=== PATIENT | female | born 1985 | race Hispanic/Latino ===

== ENCOUNTER 2020-02-10 09:43 | Outpatient (CLI) | payer BC ==
[2020-02-10] MEDS ORDERED: Lidocaine 1% PF 10 ML AMP ONE (10:15)
[2020-02-10] MEDS ORDERED: Iopamidol 300 61% 50 ML VIAL FS ONE (10:15)
[2020-02-10] MEDS ORDERED: EPINEPHrine 1 MG/ML AMP ONE (10:15)
[2020-02-10] MEDS ORDERED: Gadobenate Dimeglumine 529 MG/1 ML (20ML VIAL) ONE (10:15)
--- NOTE | 2020-02-10 11:21 | RAD ---
PROCEDURE: Fluoroscopic left shoulder arthrogram INDICATION: Left shoulder pain COMPARISON: None TECHNIQUE: Informed consent was obtained. 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 The patient was placed supine on the fluoroscopic table. A timeout was performed. Site overlying the left shoulder was prepped and draped in the usual sterile fashion. Buffered 1% lidocaine was admi nistered into the overlying subcutaneous tissues. Under fluoroscopic guidance, a 22-gauge spinal needle was guided down into the left glenohumeral joint. Confirmation of needle localization was conf irmed by injecting 1 cc of the buffered 1% lidocaine. Following this 7of the dilute Multihance solution MR Mix: 23.5 mL solution containing 10 mL of 0.008 dilution of Multihance, 8 mL Isovue 300, 5 mL 1% Lidocaine, 0.5 mL of 1mg/mL Epinephrine was injected. Contrast was visualized within the left glenohumeral joint with fluoroscopy. The needle was removed. The injection site was then cleanse d and bandage. The patient tolerated the injection without difficulty. Fluoroscopic time: 0.5minutes Fluoroscopic dose: 2.475 delvalle per centimeter square FINDINGS: No acute osseous abnormality. IMPRESSION: Successful left shoulder arthrogram. The patient is to have a follow-up MRarthrogram of t he right shoulder. Please see this report for further details.
--- NOTE | 2020-02-10 12:04 | MRI ---
MRI arthrogram of the left shoulder INDICATION: Left AC joint shoulder pain COMPARISON: Shoulder radiograph dated February 02, 2020 of part of a left shoulder arthrogram radiographs series. TECHNIQUE: Multiplanar multisequence MR images were obtained of left shoulder following intra-articul ar administration of a dilute gadolinium solution. Please see the separately dictated left shoulder arthrogram for details concerning the injection technique. FINDINGS: There is the appearance of some elevation of the anterior superior margin of the glenoid labrum exten ding into the anterior margin of the biceps anchor complex on the ABER images only, which is likely related to the sublabral sulcus and a small Tani complex. This is most conspicuous on the ABER imag es 6 through 9. This region appears within normal limits on the axial, sagittal and coronal post contrast and PD fat-sat series. The anterior inferior glenohumeral labral ligamentous complex appears intact. The glenohumeral articular surface is normal-appearing. The rotator cuff is intact. No muscular atrophy is evident. Visualized aspects of the AC joint are normal appearing. Coracoclavicula r ligaments are intact. The biceps tendon is located. IMPRESSION: 1. No definite acute abnormality demonstrated.
[2020-02-10] MEDS ORDERED: Magnevist 469MG/ML 20 ML VIAL ONE (15:56)
== END 2020-02-10 09:44 | disposition home or self-care (01) ==
LOC: RAD 09:43
PROVIDERS: ATTEND Orthopaedic Surgery
DX: M25.512 Pain in left shoulder (principal)
CPT/HCPCS: 23350; A9577; A9579; J0171; J2001; Q9967

== ENCOUNTER 2020-05-03 09:40 | Outpatient (CLI) | payer BC ==
--- NOTE | 2020-05-03 11:50 | MRI ---
Exam: MRI cervical spine without contrast HISTORY: Neck pain. Bilateral shoulder and hand pain times months COMPARISON: None FINDINGS: Straightening of normal cervical lordosis presumed to be positional. No significant STIR hyperintens ity to suggest ligamentous injury or vertebral body edema. Appropriate T1 marrow signal intensity of the cervical vertebra. Visualized brain parenchyma, cervicomedullary junction, cervical cord and t he upper thoracic cord have a normal size and signal intensity Incidental partially empty sella. C2-C3: Adequate disc hydration. No posterior disc abnormality. No significant central canal stenosis or significant neural foraminal narrowing C3-C4: Adequate disc hydration. No posterior disc abnormality. No significant central canal stenosis or significant neural foraminal narrowing C4-C5: Adequate disc hydration. No posterior disc abnormality. No significant central canal stenosis or significant neural foraminal narrowing C5-C6: Adequate disc hydration. No posterior disc abnormality. No significant central canal stenosis or significant neural foraminal narrowing C6-C7: Adequate disc hydration. No posterior disc abnormality. No significant central canal stenosis or significant neural foraminal narrowing C7-T1: Adequate disc hydration. No posterior disc abnormality. No significant central canal stenosis or significant neural foraminal narrowing IMPRESSION: 1. No significant central canal stenosis or significant neural foraminal narrowing throughout the cer vical spine 2. Incidental incompletely evaluated partially empty sella. Dedicated brain MRI is recommended. Parti ally empty sella is confirmed on brain MRI, correlate for intracranial hypertension/pseudotumor cerebri.
== END 2020-05-03 09:41 | disposition home or self-care (01) ==
LOC: SCSMRI 09:40
PROVIDERS: ATTEND Orthopaedic Surgery
DX: M54.2 Cervicalgia (principal)
CPT/HCPCS: 72141

== ENCOUNTER 2021-03-03 | Outpatient (CLI) | payer BC | END 2021-03-03 15:19 | disposition home or self-care (01) | DX: M54.5 Low back pain (principal) ==

== ENCOUNTER 2021-12-13 02:41 | Observation (INO) | payer BC ==
[2021-12-13 03:09] LABS: #Basophils 0.1 thou/uL (0.0-0.2); #Eosinphils 0.1 thou/uL (0.0-0.7); #Lymphocytes 2.4 thou/uL (1.20-3.40); #Monocytes 0.6 thou/uL (0.11-0.59); #Neutrophils 5.5 thou/uL (1.40-6.50); %Basophils 1.1 % (0.0-1.0); %Eosinophils 0.9 % (0.0-10.0); %Monocytes 6.4 % (0.0-10.0); %Neutrophils 63.7 % (42.0-75.0); Hemoglobin 15.7 g/dL (12.0-16.0); Mean Corpuscular HGB CONC 34.8 g/dL (32.0-36.0); Mean Corpuscular Hemoglobin 31.1 pg (27.0-31.0); Mean Corpuscular Volume 89.2 fL (78.0-98.0); Mean Platelet Volume 9.6 fL (7.4-10.4); Platelet Count 206 thou/uL (130-400); RBC Distribution Width 11.9 % (11.5-14.5); Red Blood Cell (RBC) Count 5.07 mill/uL (4.20-5.40); White Blood Cell (WBC) Count 8.7 thou/uL (4.8-10.8)
[2021-12-13 03:25] LABS: Acetaminophen Less than 10.0 mcg/mL (10.0-30.0); Alcohol 93 mg/dL (Less than 10); Salicylate Less than 8.0 mg/dL (15.0-30.0)
[2021-12-13 03:27] LABS: ALT (SGPT) 27 U/L (8-55); AST (SGOT) 23 U/L (5-34); Alkaline Phosphatase 85 U/L (40-110); Anion Gap 20 mmol/L (10-20); BUN (Urea Nitrogen) 6 mg/dL (7.0-18.7); Bilirubin, Total 0.4 mg/dL (0.2-1.2); Calc. Creatinine Clearance 0 mL/min (70-130); Calcium 9.3 mg/dL (7.8-10.44); Carbon Dioxide 20 mmol/L (22-29); Chloride 104 mmol/L (98-107); Globulin 3.3 g/dL (2.4-3.5); Glucose 88 mg/dL (70-105); Protein, Total 7.3 g/dL (6.0-8.3); Sodium 141 mmol/L (136-145)
[2021-12-13 03:32] LABS: BHCG - Serum Negative (NEGATIVE); Pregs Control Background? CLEAR/WHITE (CLR/WHITE); Pregs Control Bar Appear? YES (CONTROL BAR)
[2021-12-13 03:34] LABS: Potassium 2.7 mmol/L (3.5-5.1)
[2021-12-13 03:59] LABS: Amphetamine Not Detected (NotDetected); Barbiturates Screen Not Detected (NotDetected); Benzodiazepine Screen Not Detected (NotDetected); Cocaine Metabolite Screen Not Detected (NotDetected); Methadone Not Detected (NotDetected); Methamphetamine Not Detected (NotDetected); Opiate Screen Not Detected (NotDetected); Oxycodone Screen Not Detected (NotDetected); Phencyclidine (PCP) Not Detected (NotDetected); THC/Cannabinoid Screen Not Detected (NotDetected); Tricyclic Screen Not Detected (NotDetected)
[2021-12-13 04:05] LABS: Thyroid Stimulating Hormone 0.9194 uIU/mL (0.35-4.94)
[2021-12-13] MEDS ORDERED: Potassium Chloride 20 MEQ TAB ONE ×2 (04:05→09:09)
[2021-12-13] MEDS ORDERED: Potassium Chloride 20 MEQ TAB PO SCH ×2 (05:45→09:00)
[2021-12-13 06:08] LABS: Magnesium 2.2 mg/dL (1.6-2.6)
[2021-12-13] MEDS ORDERED: Acetaminophen 325 MG TAB PO PRN (08:13)
[2021-12-13] MEDS ORDERED: Calcium Carbonate 500 MG ChewTAB PO PRN (08:13)
[2021-12-13] MEDS ORDERED: Senokot S 8.6-50 MG TAB PO PRN (08:13)
[2021-12-13] MEDS ORDERED: Thiamine 100 MG TAB PO SCH (09:00)
[2021-12-13] MEDS ORDERED: Bupropion 150 MG XL TAB PO SCH (09:00)
[2021-12-13] MEDS ORDERED: Folic Acid 1 MG TAB ONE (09:09)
[2021-12-13] MEDS ORDERED: Famotidine 20 MG TAB ONE (09:09)
[2021-12-13] MEDS ORDERED: Thiamine 100 MG TAB ONE (09:09)
[2021-12-13] MEDS: Folic Acid 1 MG TAB PO SCH (10:20)
[2021-12-13] MEDS: Famotidine 20 MG TAB PO SCH ×2 (10:20→21:43)
[2021-12-13] MEDS: Bupropion 150 MG XL TAB PO SCH (10:21)
[2021-12-13] MEDS: Multivit, Therapeutic 1 TAB PO SCH (10:21)
[2021-12-13] MEDS: NS 0.9% w/ 20 MEQ KCL 1,000 ML/1,000 ML BAG IV SCH ×2 (10:44→23:58)
[2021-12-13 14:58] LABS: Anion Gap 13 mmol/L (10-20); BUN (Urea Nitrogen) 9 mg/dL (7.0-18.7); Calc. Creatinine Clearance 0 mL/min (70-130); Calcium 9.1 mg/dL (7.8-10.44); Carbon Dioxide 25 mmol/L (22-29); Chloride 106 mmol/L (98-107); Glucose 85 mg/dL (70-105); Potassium 4.1 mmol/L (3.5-5.1); Sodium 140 mmol/L (136-145)
[2021-12-13 15:17] VITALS: BMI 50.5
[2021-12-13] MEDS ORDERED: Ondansetron ODT 4 MG TAB PO PRN (18:29)
[2021-12-13] MEDS ORDERED: Electrolyte Replacement Protocol 1 EACH FS SCH (18:30)
[2021-12-13 19:24] LABS: Phosphorus 2.6 mg/dL (2.3-4.7)
[2021-12-13] MEDS ORDERED: Enoxaparin Sodium 40 MG/0.4 ML SYRINGE SC SCH (21:00)
[2021-12-13] MEDS: Cyanocobalamin (Vitamin B-12) 1,000 MCG TAB PO SCH (21:42)
[2021-12-13] MEDS: Lorazepam 0.5 MG TAB PO PRN (21:50)
[2021-12-13] MEDS ORDERED: Zolpidem Tartrate 5 MG TAB PO SCH (23:45)
[2021-12-14 04:43] LABS: #Eosinphils 0.2 thou/uL (0.0-0.7); #Lymphocytes 1.8 thou/uL (1.20-3.40); #Monocytes 0.5 thou/uL (0.11-0.59); #Neutrophils 5.9 thou/uL (1.40-6.50); %Basophils 0.6 % (0.0-1.0); %Eosinophils 2.1 % (0.0-10.0); %Lymphocytes 21.7 % (21.0-51.0); %Monocytes 5.7 % (0.0-10.0); Hemoglobin 13.9 g/dL (12.0-16.0); Mean Corpuscular HGB CONC 34.1 g/dL (32.0-36.0); Mean Corpuscular Hemoglobin 29.9 pg (27.0-31.0); Mean Corpuscular Volume 87.7 fL (78.0-98.0); Mean Platelet Volume 9.3 fL (7.4-10.4); Platelet Count 182 thou/uL (130-400); RBC Distribution Width 12.1 % (11.5-14.5); Red Blood Cell (RBC) Count 4.66 mill/uL (4.20-5.40); White Blood Cell (WBC) Count 8.5 thou/uL (4.8-10.8)
[2021-12-14 05:24] LABS: Anion Gap 10 mmol/L (10-20); BUN (Urea Nitrogen) 9 mg/dL (7.0-18.7); Calc. Creatinine Clearance 242 mL/min (70-130); Calcium 8.5 mg/dL (7.8-10.44); Carbon Dioxide 24 mmol/L (22-29); Chloride 108 mmol/L (98-107); Glucose 77 mg/dL (70-105); Magnesium 1.8 mg/dL (1.6-2.6); Potassium 3.6 mmol/L (3.5-5.1); Sodium 138 mmol/L (136-145)
[2021-12-14 05:42] LABS: Phosphorus 3.4 mg/dL (2.3-4.7)
[2021-12-14] MEDS ORDERED: Cepastat Lozenges 1 LOZ PO PRN (06:45)
[2021-12-14] MEDS ORDERED: Magnesium 2 GM/50 ML(in water) 2 GM in Premix Bag 1 BAG IVPB SCH (08:00)
[2021-12-14] MEDS ORDERED: Artificial Tear Sol 15 ML BOT EA EYE PRN (08:18)
[2021-12-14] MEDS ORDERED: Loperamide HCl 2 MG CAP PO PRN (08:18)
[2021-12-14] MEDS ORDERED: hydrALAZINE 20 MG/ML VIAL SLOW IVP PRN (08:18)
[2021-12-14] MEDS ORDERED: Moisturizing Cream (Eucerin) 113 GM JAR TOP PRN (08:18)
[2021-12-14] MEDS ORDERED: Loratadine 10 MG TAB PO PRN (08:18)
[2021-12-14] MEDS ORDERED: GUAIFENESIN SF SOLN 200 MG/10 ML UDCUP PO PRN (08:18)
[2021-12-14] MEDS ORDERED: HYDROcodone/Acetaminophen 5/325 mg Tablet PO PRN (08:18)
[2021-12-14] MEDS ORDERED: Lorazepam 2 MG/ML VIAL SLOW IVP SCH (08:30)
[2021-12-14] MEDS: Bupropion 150 MG XL TAB PO SCH (10:05)
[2021-12-14] MEDS: Enoxaparin Sodium 40 MG/0.4 ML SYRINGE SC SCH (10:05)
[2021-12-14] MEDS: Folic Acid 1 MG TAB PO SCH (10:05)
[2021-12-14] MEDS: Famotidine 20 MG TAB PO SCH ×2 (10:05→21:58)
[2021-12-14] MEDS: Multivit, Therapeutic 1 TAB PO SCH (10:06)
[2021-12-14] MEDS ORDERED: Magnevist 469MG/ML 20 ML VIAL ONE (15:02)
[2021-12-14] MEDS: Cyanocobalamin (Vitamin B-12) 1,000 MCG TAB PO SCH (21:58)
[2021-12-14] MEDS: Lorazepam 0.5 MG TAB PO PRN (22:01)
[2021-12-15] MEDS: Lorazepam 0.5 MG TAB PO PRN ×2 (02:45→14:28)
[2021-12-15] MEDS: Bupropion 150 MG XL TAB PO SCH (10:19)
[2021-12-15] MEDS: Multivit, Therapeutic 1 TAB PO SCH (10:19)
[2021-12-15] MEDS: Famotidine 20 MG TAB PO SCH (10:19)
[2021-12-15] MEDS: Folic Acid 1 MG TAB PO SCH (10:19)
[2021-12-15] MEDS: Enoxaparin Sodium 40 MG/0.4 ML SYRINGE SC SCH (10:19)
[2021-12-15 14:49] VITALS: TEMP 97.6
[2021-12-15 16:11] VITALS: BP 130/80
[2021-12-17] MEDS ORDERED: Thiamine 100 MG TAB PO SCH (09:00)
== END 2021-12-15 16:53 ==
LOC: ERS 02:41 → ERHOLD 05:04 → 2NO 14:51
PROVIDERS: ADMIT Internal Medicine; ATTEND Internal Medicine
DX: T42.4X2A Poisoning by benzodiazepines, intentional self-harm, initial encounter (principal); H53.2 Diplopia; E87.6 Hypokalemia; Z20.822 Contact with and (suspected) exposure to COVID-19; F17.210 Nicotine dependence, cigarettes, uncomplicated; F17.290 Nicotine dependence, other tobacco product, uncomplicated; F10.129 Alcohol abuse with intoxication, unspecified; E66.01 Morbid (severe) obesity due to excess calories; Z68.43 Body mass index [BMI] 50.0-59.9, adult; Z79.899 Other long term (current) drug therapy; Z88.1 Allergy status to other antibiotic agents
CPT/HCPCS: 36415; 70450; 70553; 80048; 80053; 80306; 80307; 83735; 84100; 84443; 84703; 85025; 93005; 93010; 96372; 96374; 96375; 96376; G0378; J1650; J2060; J3411; J3475; J3480; U0003; U0005

== ENCOUNTER 2023-05-07 06:08 | Emergency (ER) | payer BC ==
[2023-05-07] MEDS ORDERED: Ketorolac Tromethamine 30 MG/ML VIAL ONE (07:30)
[2023-05-07] MEDS ORDERED: predniSONE 20 MG TAB ONE (07:30)
[2023-05-07] MEDS ORDERED: traMADol HCl 50 MG TAB ONE (07:31)
== END 2023-05-07 07:45 | disposition home or self-care (01) ==
LOC: ERS 06:08
DX: M54.32 Sciatica, left side (principal); E66.9 Obesity, unspecified; F17.210 Nicotine dependence, cigarettes, uncomplicated
CPT/HCPCS: 96372; 99283; J1885; J7512